=== PATIENT | male | born 1960 | race Caucasian/White ===

== ENCOUNTER 2021-12-26 10:45 | Inpatient (IN) | payer BC ==
[~2021-12-26] VITALS: Ht 178 cm; Wt 76.0 kg
--- NOTE | 2021-12-26 11:07 | ED Respiratory ---
General Chief Complaint: Respiratory Problems Stated Complaint: SOA Nursing Triage Note: PT AMBULATORY TO TRIAGE, REPORTS TESTED POSITIVE FOR COVID ON 12/08. PT C/O CONTINUED SOB AND MID-STERNAL CP, DESCRIBES PRESSURE SENSATION. PT WENT TO CLINIC THIS AM, FOUND OXYGEN LEVE TO BE 85%, PT INSTRUCTED TO COME TO ER FOR FURTHER EVAL. UPON ARRIVAL TO ER, PT O2 SAT 80% ON RA, PLACE ON O2 VIA NC AT 4 L, 02 INCREASED TO 94%. PT ARRIVES WITH EKG FROM CLINIC. (JEFERSON CHUA MED STUDENT) History of Present Illness Date Seen by Provider: Dec 26, 2021 Time Seen by Provider: 10:53 Initial Comments Mr. Burns is a 61 yo male with PMH of 2 PPD smoker and DMII. He presents to ER today from [facility] clinic for hypoxia. He Was diagnosed with Covid about 3 weeks ago and has not been able to recover since. He has been having ongoing substernal discomfort and shortness of breath that is worse with exertion. It has not improved at all since he has gotten covid. He completed a 4 day course o f steroids 5 days ago which he states did not help at all. In the clinic he had a saturation of 85%. He was also tachycardic in the 100-110 range. His O2 is 93% in the ER on 4L. He does not complain of any other symptoms at this time. He was not vaccinated. (JEFERSON CHAU MED STUDENT) Timing/Duration: getting worse, other Severity: moderate (3 weeks) Prior Episodes/Possible Cause: no prior episodes Associated Symptoms: cough; No fever/chills, No muscle aches, No nasal congestion; shortness of breath; No wheezing (MILTON HOLT MD) Allergies and Home Medications Allergies Coded Allergies: NKANo Known Allergies (Verified Allergy, Unknown, 03/08/06) Patient Home Medication List Home Medication List Reviewed: Yes (MILTON HOLT MD) Review of Systems Review of Systems Constitutional: No chills, No fever EENTM: No hearing loss, No vision loss Respiratory: cough; No hemoptysis; short of breath Cardiovascular: chest pain; No edema, No palpitations Gastrointestinal: No abdominal pain, No constipation, No diarrhea, No nausea, No vomiting Genitourinary: No dysuria, No hematuria Musculoskeletal: No joint pain, No joint swelling Skin: No pruritus, No rash Psychiatric/Neurological: Denies Headache, Denies Numbness (JEFERSON CHUA) Constitutional: No chills, No fever EENTM: No nose congestion, No throat pain Respiratory: cough (MILTON HOLT MD) All Other Systems Reviewed Negative Unless Noted: Yes (MILTON HOLT MD) Past Qpdqyio-Itpfey-Jkngti Hx Patient Social History Tobacco Use?: Yes Tobacco type used: Cigarettes Smoking Status: Current Someday Smoker Use of E-Cig and/or Vaping dev: No Substance use?: Yes Substance type: Marijuana Alcohol Use?: No Pt feels they are or have been: No (JEFERSON CHUA) Tobacco Use?: Yes Tobacco type used: Cigarettes Smoking Status: Former Smoker (Quit 3 weeks ago but previously 2 packs/day) Smokeless Tobacco Frequency: Heavy User (MILTON HOLT MD) Immunizations Up To Date First/Initial COVID19 Vaccinat: NO Second COVID19 Vaccination Lg: NO (JEFERSON CHUA) Past Medical History Reproductive Disorders: No (JEFERSON CHUA) Family Medical History Reviewed Nursing Family Hx (MILTON HOLT MD) No Pertinent Family Hx (MILTON HOLT MD) Physical Exam Vital Signs - First Documented 12/26/21 12/26/21 10:55 11:00 Temp 36.4 Pulse 103 Resp 20 B/P (MAP) 131/105 (114) Pulse Ox 80 O2 Delivery Nasal Cannula O2 Flow Rate 4.00 FiO2 94 (MILTON HOLT MD) Capillary Refill : (JEFERSON CHUA STUDENT) Height: '" Weight: lbs. oz. kg; 23.00 BMI Method: General Appearance: WD/WN, no apparent distress Eyes: Bilateral Eye PERRL, Bilateral Eye EOMI HEENT: PERRL/EOMI, other (dry mucus membranes) Respiratory: chest non-tender, no respiratory distress, crackles (in L lower lobe) Cardiovascular: regular rate, rhythm (Tachycardic initially), no edema, no murmur Gastrointestinal: normal bowel sounds, non tender, soft Extremities: no pedal edema, no calf tenderness, normal capillary refill Neurologic/Psychiatric: alert, normal mood/affect, oriented x 3 Skin: normal color, warm/dry (TOMAJEFERSON MED STUDENT) HEENT: pharynx normal, other (dry mucus membranes) Respiratory: crackles (in L lower lobe) Cardiovascular: regular rate, rhythm (Tachycardic initially), no murmur Gastrointestinal: non tender, soft Extremities: non-tender, no pedal edema, no calf tenderness Neurologic/Psychiatric: alert, oriented x 3 Skin: normal color, warm/dry (MILTON HOLT MD) Progress/Results/Core Measures Suspected Sepsis SIRS Temperature: Pulse: 103 Respiratory Rate: 20 Laboratory Tests 12/26/21 10:59: White Blood Count 12.8H Blood Pressure 131 /105 Mean: 114 Laboratory Tests 12/26/21 10:59: Creatinine 0.97, Platelet Count 219, Total Bilirubin 1.0 (TOMAJEFERSON MED STUDENT) Results/Orders Lab Results Laboratory Tests Test 12/26/21 10:59 Range/Units White Blood Count 12.8 H 4.3-11.0 10^3/uL Red Blood Count 5.19 4.30-5.52 10^6/uL Hemoglobin 15.4 13.3-17.7 g/dL Hematocrit 45 40-54 % Mean Corpuscular Volume 86 80-99 fL Mean Corpuscular Hemoglobin 30 25-34 pg Mean Corpuscular Hemoglobin Concent 35 32-36 g/dL Red Cell Distribution Width 12.6 10.0-14.5 % Platelet Count 219 130-400 10^3/uL Mean Platelet Volume 9.4 9.0-12.2 fL Immature Granulocyte % (Auto) 1 % Neutrophils (%) (Auto) 80 H 42-75 % Lymphocytes (%) (Auto) 12 12-44 % Monocytes (%) (Auto) 6 0-12 % Eosinophils (%) (Auto) 1 0-10 % Basophils (%) (Auto) 0 0-10 % Neutrophils # (Auto) 10.3 H 1.8-7.8 10^3/uL Lymphocytes # (Auto) 1.6 1.0-4.0 10^3/uL Monocytes # (Auto) 0.8 0.0-1.0 10^3/uL Eosinophils # (Auto) 0.1 0.0-0.3 10^3/uL Basophils # (Auto) 0.0 0.0-0.1 10^3/uL Immature Granulocyte # (Auto) 0.1 0.0-0.1 10^3/uL Sodium Level 141 135-145 MMOL/L Potassium Level 4.0 3.6-5.0 MMOL/L Chloride Level 104 98-107 MMOL/L Carbon Dioxide Level 19 L 21-32 MMOL/L Anion Gap 18 H 5-14 MMOL/L Blood Urea Nitrogen 15 7-18 MG/DL Creatinine 0.97 0.60-1.30 MG/DL Estimat Glomerular Filtration Rate 89 BUN/Creatinine Ratio 15 Glucose Level 188 H 70-105 MG/DL Calcium Level 10.2 H 8.5-10.1 MG/DL Corrected Calcium 10.3 H 8.5-10.1 MG/DL Total Bilirubin 1.0 0.1-1.0 MG/DL Aspartate Amino Transf (AST/SGOT) 15 5-34 U/L Alanine Aminotransferase (ALT/SGPT) 7 0-55 U/L Alkaline Phosphatase 77 40-136 U/L C-Reactive Protein High Sensitivity 10.70 H 0.00-0.50 MG/DL Total Protein 7.9 6.4-8.2 GM/DL Albumin 3.9 3.2-4.5 GM/DL Procalcitonin 0.08 <0.10 NG/ML (MILTON HOLT MD) My Orders Orders - MILTON HOLT MD Cbc With Automated Diff (12/26/21 11:05) Comprehensive Metabolic Panel (12/26/21 11:05) Hs C Reactive Protein (12/26/21 11:05) Procalcitonin (Pct) (12/26/21 11:05) Ed Iv/Invasive Line Start (12/26/21 11:05) Ns Iv 1000 Ml (Sodium Chloride 0.9%) (12/26/21 11:15) Chest 1 View, Ap/Pa Only (12/26/21 11:05) Albuterol/Ipra Inhalation Soln (Duoneb I (12/26/21 11:15) Svn Small Volume Nebulizer (12/26/21 11:05) Albuterol Pre-Mix Nebs (Rt) (Proventil (12/26/21 11:36) Svn Small Volume Nebulizer (12/26/21 11:36) Ct Angio Chest W (12/26/21 11:39) Iohexol Injection (Omnipaque 350 Mg/Ml 1 (12/26/21 12:00) Received Contrast (Hold Metformin- Contr (12/26/21 12:00) Ns (Ivpb) (Sodium Chloride 0.9% Ivpb Bag (12/26/21 12:00) Sodium Chloride Flush (Catheter Flush Sy (12/26/21 12:00) Methylprednisolone Sod Succ (Solu-Medrol (12/26/21 12:47) Albuterol Pre-Mix Nebs (Rt) (Proventil (12/26/21 12:47) Ipratropium 0.02% Neb Solution (Atrovent (12/26/21 13:00) Svn Small Volume Nebulizer (12/26/21 12:47) Svn Small Volume Nebulizer (12/26/21 12:47) Ed Admission (Communication) (12/26/21 12:50) (MILTON HOLT MD) Medications Given in ED Current Medications Medications Dose Ordered Sig/Chanel Route Start Time Stop Time Status Last Admin Dose Admin Albuterol/ Ipratropium 3 ml ONCE ONCE INH 12/26/21 11:15 12/26/21 11:16 DC 12/26/21 11:22 3 ML Iohexol 100 ml ONCE ONCE IV 12/26/21 12:00 12/26/21 12:01 DC 12/26/21 12:07 66 ML Sodium Chloride 10 ml NEEDED PRN IV 12/26/21 12:00 12/26/21 12:07 10 ML Sodium Chloride 100 ml ONCE ONCE IV 12/26/21 12:00 12/26/21 12:01 DC 12/26/21 12:07 80 ML Sodium Chloride 1,000 ml @ 0 mls/hr Q0M ONCE IV 12/26/21 11:15 12/26/21 11:16 DC 12/26/21 11:12 0 MLS/HR (MILTON HOLT MD) Vital Signs/I&O 12/26/21 12/26/21 12/26/21 12/26/21 10:55 10:55 11:00 11:13 Temp 36.4 Pulse 103 103 Resp 20 20 B/P (MAP) 131/105 (114) 116/87 Pulse Ox 80 92 O2 Delivery Nasal Cannula Nasal Cannula Room Air Nasal Cannula O2 Flow Rate 4.00 4.00 4.00 FiO2 94 12/26/21 12/26/21 12/26/21 12/26/21 11:23 11:39 11:44 11:48 Pulse 92 Resp 18 B/P (MAP) 131/69 Pulse Ox 93 92 94 95 O2 Delivery Nasal Cannula Nasal Cannula Nasal Cannula Nasal Cannula O2 Flow Rate 4.00 4.00 4.00 4.00 12/26/21 12/26/21 11:50 12:24 Pulse 112 Resp 18 B/P (MAP) 124/55 Pulse Ox 95 93 O2 Delivery Nasal Cannula Nasal Cannula O2 Flow Rate 4.00 4.00 (MILTON HOLT MD) Vital Signs/I&O Capillary Refill : (JEFERSON CHUA MED STUDENT) Blood Pressure Mean: 114 Progress Note : Time: 11:33 Progress Note Saw and examined patient. Concern for PE so will check kidney function and basic labs and get CT scan. Nebulizer treatment as well as steroids to help breathing. Will give up to 4. O2 as needed to maintain saturation, may have to be discharged with some. Could also be COPD exacerbation due to smoking history. Got CXR as well, which showed post covid findings. Will also check CRP and procalcitonin. Will give some fluids as well since he seems a bit dry. (JEFERSON CHUA MED STUDENT) Progress Note : Progress Note I have seen and evaluated the patient and agree with above except as indicated. I have directed the plan of care. Patient is here after having increasing shortness of breath. He tried to go to work this morning and was noted to be pale. He went to [facility] urgent care and was found to be hypoxic at 80% with any activity. He is not normally on O2. He did have Covid infection from December 08 that he is recovered from. Since he has had persistent shortness of air. He has been on a steroid pack that did not help apparently last week. Denies fever chills. Denies nausea or vomiting. Otherwise has recovered from Covid. Previous smoker of 2 packs/day since 1978. Quit 3 weeks ago when he got the infection. He is not vaccinated. Evaluation as above. Plan: We will check labs and chest x-ray with anticipation of CT scan of the chest to rule out pulmonary emboli. Normal saline 1 L bolus ordered. DuoNeb ordered. We subsequently did 3 more albuterol treatments as he did have some improvement. Monitor patient. 1248: We have initiated continuous 1 hour along nebulizer treatment with 12.5 mg of albuterol and 1 Atrovent. Solu-Medrol 125 mg IV ordered. Patient to be admitted. No pulmonary emboli but significant lung disease with acute on chronic and COPD exacerbation with hypoxia. Still requiring O2 4 L to keep O2 sats at 92 -94%. Does have of right perihilar mass that is concerning for possible neoplasm. This was discussed with patient. This will require further work-up as patient is able. We will focus on the COPD currently. Case was discussed with Dr. Eisenberg who accepts patient for admission, inpatient status. She will see patient in the emergency department. (MILTON HOLT MD) Diagnostic Imaging Diagonstic Imaging: CT Plain Films/CT/US/NM/MRI: chest [facility] [place] [place] NAME: [facility] REC#: [id number] PT STATUS: REG ER : 1960 PHYSICIAN: MILTON HOLT MD ADMIT DATE: 12/26/21/ER Signed Date of Exam:12/26/21 CHEST 1 VIEW, AP/PA ONLY INDICATION: Shortness of air, post COVID. FINDINGS: There are five-lobe largely peripheral interstitial infiltrates and coarse interstitial lung markings. No airspace consolidation. No overt failure pattern. No effusion or pneumothorax. IMPRESSION: Bilateral largely peripheral interstitial opacities, while nonspecific likely reflect the sequelae of known COVID. Dictated by: Dictated on workstation # [id number] Dict: 12/26/21 1126 Trans: 12/26/21 1151 [id number] Interpreted by: RAMONA HUMPHREYS Electronically signed by: RAMONA HUMPHREYS 12/26/21 1151 Diagonstic Imaging: Xray, CT Plain Films/CT/US/NM/MRI: chest Comments [facility] [place] NAME: KATYABE [facility] [employer] REC#: [id number] PT STATUS: REG ER : 1960 PHYSICIAN: MILTON HOLT MD ADMIT DATE: 12/26/21/ER Signed Date of Exam:12/26/21 CT ANGIO CHEST W PROCEDURE: CT angiography of the chest with contrast. TECHNIQUE: Multiple contiguous axial images were obtained through the chest after uneventful bolus administration of intravenous contrast. 3D reconstructed CTA MIP acquisitions were also performed. Auto Exposure Controls were utilized during the CT exam to meet ALARA standards for radiation dose reduction. INDICATION: Shortness of breath. Elevated D-dimer. COMPARISON: Chest radiograph performed earlier this same date. FINDINGS: This helical CT pulmonary angiogram is suboptimal. No large central pulmonary emboli are visualized. The heart size is normal. There is no pericardial effusion. Lymphadenopathy is seen in the chest with the largest lymph node in the right hilar region measuring 3.3 x 2.7 cm. Centrilobular and paraseptal emphysema is seen throughout the lungs. Honeycombing is noted throughout the lungs. There is associated traction bronchiectasis. No discrete pulmonary mass is identified. No central endobronchial obstructing lesions. No pleural effusion or pneumothorax. Osseous structures appear normal. Limited views of the upper abdomen are unremarkable. IMPRESSION: 1. Suboptimal CT pulmonary angiogram due to contrast timing. No large central pulmonary emboli seen. 2. Findings consistent with UIP pattern with honeycombing and bronchiectasis throughout the lungs. Recommend correlation with patient history and PFTs. 3. Pathologically enlarged lymph nodes in the mediastinum and hilum with the largest in the right hilar region. Findings are concerning for malignancy. Consider PET/CT to further evaluate. Biopsy of the largest lymph node in the right hilar region could also be achieved with bronchoscopy guided biopsy. 4. Paraseptal and centrilobular emphysema throughout the lungs, greatest in the apices. Dictated by: Dictated on workstation # [id number] Dict: 12/26/21 1213 Trans: 12/26/21 1231 [id number] Interpreted by: HANNAH HIRSCH DO Electronically signed by: HANNAH HIRSCH DO 12/26/21 1231 (MILTON HOLT MD) Departure Communication (Admissions) Time/Spoke to Admitting Phy: 12:48 (MILTON HOLT MD) Impression Primary Impression: COPD with exacerbation Additional Impressions: Hypoxia Mass of right lung Post-COVID syndrome Disposition: 09 ADMITTED INPATIENT Condition: Stable Admissions Decision to Admit Reason: Admit from ER (General) Decision to Admit/Date: Dec 26, 2021 Time/Decision to Admit Time: 12:48 (MILTON HOLT MD) Departure-Patient Inst. Referrals: RUBINA BENSON MD (PCP/Family) Primary Care Physician JEFERSON CHUA MED STUDENT Dec 26, 2021 11:07 MILTON HOLT MD Dec 26, 2021 12:58
[2021-12-26] MEDS ORDERED: NS IV 1000 ML 1,000 ML IV ONE (11:15)
[2021-12-26] MEDS ORDERED: RT-ALBUTEROL/IPRATROPIUM 3 ML (DUONEB) VIAL INH ONE (11:15)
[2021-12-26 11:17] LABS: ALBUMIN 3.9 GM/DL (3.2-4.5)
[2021-12-26 11:18] LABS: BASOPHILS % (AUTO) 0 % (0-10); EOSINOPHILS # (AUTO) 0.1 10^3/uL (0.0-0.3); EOSINOPHILS % (AUTO) 1 % (0-10); HEMATOCRIT 45 % (40-54); HEMOGLOBIN 15.4 g/dL (13.3-17.7); LYMPHOCYTES # (AUTO) 1.6 10^3/uL (1.0-4.0); LYMPHOCYTES % (AUTO) 12 % (12-44); MEAN CORPUSCULAR HEMOGLOBIN 30 pg (25-34); MEAN CORPUSCULAR HGB CONC 35 g/dL (32-36); MEAN CORPUSCULAR VOLUME 86 fL (80-99); MEAN PLATELET VOLUME 9.4 fL (9.0-12.2); MONOCYTES # (AUTO) 0.8 10^3/uL (0.0-1.0); MONOCYTES % (AUTO) 6 % (0-12); NEUTROPHILS # (AUTO) 10.3 10^3/uL (1.8-7.8); NEUTROPHILS % (AUTO) 80 % (42-75); PLATELET COUNT 219 10^3/uL (130-400); WHITE BLOOD COUNT 12.8 10^3/uL (4.3-11.0)
[2021-12-26 11:19] LABS: CALCIUM 10.2 MG/DL (8.5-10.1)
[2021-12-26 11:20] LABS: TOTAL PROTEIN 7.9 GM/DL (6.4-8.2)
[2021-12-26 11:24] LABS: CREATININE SERUM 0.97 MG/DL (0.60-1.30)
--- NOTE | 2021-12-26 11:30 | Diagnostic Imaging Report ---
INDICATION: Shortness of air, post COVID. FINDINGS: There are five-lobe largely peripheral interstitial infiltrates and coarse interstitial lung markings. No airspace consolidation. No overt failure pattern. No effusion or pneumothorax. IMPRESSION: Bilateral largely peripheral interstitial opacities, while nonspecific likely reflect the sequelae of known COVID. Dictated by: Dictated on workstation # [id number]
[2021-12-26] MEDS ORDERED: fentaNYL INJ 100 MCG/2 ML AMP IVP STA (11:33)
[2021-12-26] MEDS ORDERED: RT-ALBUTEROL SULF 2.5 MG/3 ML PRE-MIX VIAL INH STA ×2 (11:36→12:47)
[2021-12-26] MEDS ORDERED: HYDROcodone/APAP 5 MG/325 MG (LORTAB) TAB PO ONE (11:45)
[2021-12-26] MEDS ORDERED: IOHEXOL 350 MG/ML 100 ML (OMNIPAQUE 350) VIAL IV ONE (12:00)
[2021-12-26] MEDS ORDERED: HOLD METFORMIN - RECEIVED CONTRAST 20 ML VIAL IV SCH (12:00)
[2021-12-26] MEDS ORDERED: NS 100 ML (IVPB) BAG IV ONE (12:00)
[2021-12-26] MEDS ORDERED: CATHETER FLUSH 10 ML SYR IV PRN (12:00)
--- NOTE | 2021-12-26 12:26 | Diagnostic Imaging Report ---
PROCEDURE: CT angiography of the chest with contrast. TECHNIQUE: Multiple contiguous axial images were obtained through the chest after uneventful bolus administration of intravenous contrast. 3D reconstructed CTA MIP acquisitions were also performed. Auto Exposure Controls were utilized during the CT exam to meet ALARA standards for radiation dose reduction. INDICATION: Shortness of breath. Elevated D-dimer. COMPARISON: Chest radiograph performed earlier this same date. FINDINGS: This helical CT pulmonary angiogram is suboptimal. No large central pulmonary emboli are visualized. The heart size is normal. There is no pericardial effusion. Lymphadenopathy is seen in the chest with the largest lymph node in the right hilar region measuring 3.3 x 2.7 cm. Centrilobular and paraseptal emphysema is seen throughout the lungs. Honeycombing is noted throughout the lungs. There is associated traction bronchiectasis. No discrete pulmonary mass is identified. No central endobronchial obstructing lesions. No pleural effusion or pneumothorax. Osseous structures appear normal. Limited views of the upper abdomen are unremarkable. IMPRESSION: 1. Suboptimal CT pulmonary angiogram due to contrast timing. No large central pulmonary emboli seen. 2. Findings consistent with UIP pattern with honeycombing and bronchiectasis throughout the lungs. Recommend correlation with patient history and PFTs. 3. Pathologically enlarged lymph nodes in the mediastinum and hilum with the largest in the right hilar region. Findings are concerning for malignancy. Consider PET/CT to further evaluate. Biopsy of the largest lymph node in the right hilar region could also be achieved with bronchoscopy guided biopsy. 4. Paraseptal and centrilobular emphysema throughout the lungs, greatest in the apices. Dictated by: Dictated on workstation # [id number]
[2021-12-26] MEDS ORDERED: methylPREDNISolone 125 MG (Solu-MEDROL) VIAL IV STA (12:47)
[2021-12-26] MEDS ORDERED: RT-IPRATROPIUM (ATROVENT) 0.5MG/2.5ML AMP IH ONE (13:00)
--- NOTE | 2021-12-26 13:40 | History & Physical ---
HPI History of Present Illness: 61 yo male came to ER because of worsening shortness of breath, fatigue, chills and diaphoresis. Symptoms initially started Dec 08, tested positive for SARS-CoV-2 on Dec 09, didn't see anybody until Dec 17 hoping he would get better on his own, at that point he was treated with prednisone for 5 days, but hasn't really improved. Today his fingers were turning blue while at work, and at clinic he was found to have SpO2 85% on room air. He has lost 10-15 lbs in the last few weeks from poor taste and not feeling well. He admits some chest pain today before arrival that improved after breathing treatments. He has smoked 2 ppd since 1978, hasn't smoked in the last 3 weeks. No history of COPD diagnosis, inhaler use or supplemental oxygen use. Date seen by provider: Dec 26, 2021 Time Seen by Provider: 13:25 Attending Physician Angela Eisenberg MD [facility] Consult Date of Admission Dec 26, 2021 at 12:53 Home Medications Home Medications Reviewed patient Home Medication Reconciliation performed by pharmacy medication reconciliations electro mechanical solar technician and/or nursing. Patients Allergies have been reviewed. Allergies Coded Allergies: NKANo Known Allergies (Verified Allergy, Unknown, 03/08/06) [id number]-[id number]-Anmlyw Hx Patient Social History Smoking Status: Former Smoker (Quit 3 weeks ago but previously 2 packs/day) Former smoker/When Quit: Dec 08, 2021 Alcohol Use?: Yes (12 pack on the weekend) Substance type: Marijuana Tobacco type used: Cigarettes Past Medical History PMHx: Diabetes SurgHx: Cholecystectomy Family Medical History Significant Family History: Cancer (father lung, bone, brain; paternal uncle bone cancer, paternal uncles on brain cancer) Review of Systems ([facility]) Constitutional: chills, diaphoresis, weight loss Respiratory: cough, short of breath Cardiovascular: chest pain Gastrointestinal: No diarrhea, No vomiting Reviewed Test Results Reviewed Test Results Lab Laboratory Tests Test 12/26/21 10:59 Range/Units White Blood Count 12.8 H 4.3-11.0 10^3/uL Red Blood Count 5.19 4.30-5.52 10^6/uL Hemoglobin 15.4 13.3-17.7 g/dL Hematocrit 45 40-54 % Mean Corpuscular Volume 86 80-99 fL Mean Corpuscular Hemoglobin 30 25-34 pg Mean Corpuscular Hemoglobin Concent 35 32-36 g/dL Red Cell Distribution Width 12.6 10.0-14.5 % Platelet Count 219 130-400 10^3/uL Mean Platelet Volume 9.4 9.0-12.2 fL Immature Granulocyte % (Auto) 1 % Neutrophils (%) (Auto) 80 H 42-75 % Lymphocytes (%) (Auto) 12 12-44 % Monocytes (%) (Auto) 6 0-12 % Eosinophils (%) (Auto) 1 0-10 % Basophils (%) (Auto) 0 0-10 % Neutrophils # (Auto) 10.3 H 1.8-7.8 10^3/uL Lymphocytes # (Auto) 1.6 1.0-4.0 10^3/uL Monocytes # (Auto) 0.8 0.0-1.0 10^3/uL Eosinophils # (Auto) 0.1 0.0-0.3 10^3/uL Basophils # (Auto) 0.0 0.0-0.1 10^3/uL Immature Granulocyte # (Auto) 0.1 0.0-0.1 10^3/uL Sodium Level 141 135-145 MMOL/L Potassium Level 4.0 3.6-5.0 MMOL/L Chloride Level 104 98-107 MMOL/L Carbon Dioxide Level 19 L 21-32 MMOL/L Anion Gap 18 H 5-14 MMOL/L Blood Urea Nitrogen 15 7-18 MG/DL Creatinine 0.97 0.60-1.30 MG/DL Estimat Glomerular Filtration Rate 89 BUN/Creatinine Ratio 15 Glucose Level 188 H 70-105 MG/DL Calcium Level 10.2 H 8.5-10.1 MG/DL Corrected Calcium 10.3 H 8.5-10.1 MG/DL Total Bilirubin 1.0 0.1-1.0 MG/DL Aspartate Amino Transf (AST/SGOT) 15 5-34 U/L Alanine Aminotransferase (ALT/SGPT) 7 0-55 U/L Alkaline Phosphatase 77 40-136 U/L C-Reactive Protein High Sensitivity 10.70 H 0.00-0.50 MG/DL Total Protein 7.9 6.4-8.2 GM/DL Albumin 3.9 3.2-4.5 GM/DL Procalcitonin 0.08 <0.10 NG/ML Radiology CTA chest 12/26: IMPRESSION: 1. Suboptimal CT pulmonary angiogram due to contrast timing. Nolarge central pulmonary emboli seen. 2. Findings consistent with UIP pattern with honeycombing and bronchiectasis throughout the lungs. Recommend correlation with patient history and PFTs. 3. Pathologically enlarged lymph nodes in the mediastinum and hilum with the largest in the right hilar region. Findings areconcerning for malignancy. Consider PET/CT to further evaluate. Biopsy of the largest lymph node in the right hilar region could also be achieved with bronchoscopy guided biopsy. 4. Paraseptal and centrilobular emphysema throughout the lungs, greatest in the apices. Physical Exam-([facility]) Physical Exam Vital Signs VS - Last 72 Hours, by Label 12/26/21 12/26/21 12/26/21 12/26/21 10:55 10:55 11:00 11:13 Temp 36.4 Pulse 103 103 Resp 20 20 B/P (MAP) 131/105 (114) 116/87 Pulse Ox 80 92 O2 Delivery Nasal Cannula Nasal Cannula Room Air Nasal Cannula O2 Flow Rate 4.00 4.00 4.00 FiO2 94 12/26/21 12/26/21 12/26/21 12/26/21 11:23 11:39 11:44 11:48 Pulse 92 Resp 18 B/P (MAP) 131/69 Pulse Ox 93 92 94 95 O2 Delivery Nasal Cannula Nasal Cannula Nasal Cannula Nasal Cannula O2 Flow Rate 4.00 4.00 4.00 4.00 12/26/21 12/26/21 12/26/21 12/26/21 11:50 12:24 12:59 13:06 Pulse 112 106 101 Resp 18 18 18 B/P (MAP) 124/55 115/66 115/70 Pulse Ox 95 93 93 93 O2 Delivery Nasal Cannula Nasal Cannula Nasal Cannula Nasal Cannula O2 Flow Rate 4.00 4.00 4.00 4.00 12/26/21 12/26/21 12/26/21 12/26/21 13:37 14:07 14:12 15:41 Temp 37.2 35.9 36.7 Pulse 107 107 93 Resp 18 22 B/P (MAP) 130/78 130/78 (95) 118/76 (90) Pulse Ox 93 93 O2 Delivery Nasal Cannula Nasal Cannula Nasal Cannula Nasal Cannula O2 Flow Rate 4.00 4.00 4.00 4.00 12/26/21 12/26/21 12/26/21 12/26/21 15:46 16:25 18:39 19:35 Temp 36.4 36.6 Pulse 103 90 Resp 22 B/P (MAP) 130/75 (93) Pulse Ox 80 95 91 O2 Delivery Nasal Cannula Nasal Cannula Nasal Cannula O2 Flow Rate 4.00 4.00 4.00 FiO2 21 Capillary Refill : General Appearance: WD/WN, no apparent distress Respiratory: no respiratory distress, rales (bilaterally lower halves) Cardiovascular: regular rate, rhythm, no murmur Gastrointestinal: normal bowel sounds, non tender, soft Extremities: no pedal edema Neurologic/Psychiatric: alert, normal mood/affect Skin: normal color, warm/dry Assessment/Plan Assessment/Plan Admission Status: Inpatient Order (span 2 midnights) Reason for Inpatient Admission: New onset respiratory failure (1) Acute respiratory failure Status: Acute Assessment & Plan: Suspect secondary to COPD exacerbation, but possibly related to underlying fibrosis and recent COVID infection. CTA negative for PE. Qualifiers: Qualified Codes: J96.01 - Acute respiratory failure with hypoxia (2) COPD with exacerbation Status: Acute Assessment & Plan: Suspect COPD exacerbation, but differential includes idiopathic pulmonary fibrosis with exacerbation given CT findings. Procal normal, afebrile, minimal leukocytosis, lower suspicion for bacterial infection. Solumedrol, duonebs. (3) Diabetes mellitus, type 2 Status: Chronic Assessment & Plan: Diabetic diet, sliding scale insulin Qualifiers: (4) Post-COVID syndrome Status: Acute Assessment & Plan: Dx with COVID early in Fe, suspect significant contribution to current respiratory failure, but CT also concerning for fibrosis and emphysema which were likely preexisting. (5) Lung fibrosis Status: Acute Assessment & Plan: Will need further work-up after acute episode for possible idiopathic pulmonary fibrosis versus other cause. (6) Mediastinal lymphadenopathy Status: Acute Assessment & Plan: Possibly pathologic, will treat acute episode and likely set up for biopsy/follow up outpatient. (7) Hilar lymphadenopathy Status: Acute Assessment & Plan: Possibly pathologic, will treat acute episode and likely set up for biopsy/follow up outpatient. (8) DVT prophylaxis Status: Acute Assessment & Plan: Enoxaparin ANGELA EISENBERG MD Dec 26, 2021 13:39
[2021-12-26] MEDS ORDERED: METHYLPREDNISOLONE 1000 MG IVP SCH (13:45)
[2021-12-26 14:07] VITALS: BP 130/78
[2021-12-26] MEDS: ACETAMINOPHEN 500 MG TAB (TYLENOL) PO SCH ×2 (15:06→21:42)
[2021-12-26 15:41] VITALS: BP 118/76
[2021-12-26 15:46] VITALS: BP 131/105
[2021-12-26] MEDS ORDERED: RT-ALBUTEROL/IPRATROPIUM 3 ML (DUONEB) VIAL INH PRN (16:15)
[2021-12-26] MEDS: methylPREDNISolone 125 MG (Solu-MEDROL) VIAL IV SCH ×2 (17:55→23:16)
[2021-12-26] MEDS: RT-ALBUTEROL/IPRATROPIUM 3 ML (DUONEB) VIAL INH SCH ×2 (18:39→21:57)
[2021-12-26 19:35] VITALS: BP 130/75
[2021-12-26] MEDS: ENOXAPARIN 40 MG/0.4 ML (LOVENOX) SYR SQ SCH (23:16)
[2021-12-26 23:59] VITALS: BP 122/71
[2021-12-27] MEDS: RT-ALBUTEROL/IPRATROPIUM 3 ML (DUONEB) VIAL INH SCH ×6 (02:20→21:27)
[2021-12-27 03:53] VITALS: BP 124/69
[2021-12-27] MEDS: methylPREDNISolone 125 MG (Solu-MEDROL) VIAL IV SCH ×2 (05:33→13:03)
[2021-12-27] MEDS: ACETAMINOPHEN 500 MG TAB (TYLENOL) PO SCH (05:34)
[2021-12-27 06:04] LABS: HEMATOCRIT 36 % (40-54); HEMOGLOBIN 12.4 g/dL (13.3-17.7); MEAN CORPUSCULAR HEMOGLOBIN 30 pg (25-34); MEAN CORPUSCULAR HGB CONC 34 g/dL (32-36); MEAN CORPUSCULAR VOLUME 86 fL (80-99); MEAN PLATELET VOLUME 9.8 fL (9.0-12.2); PLATELET COUNT 167 10^3/uL (130-400); WHITE BLOOD COUNT 6.4 10^3/uL (4.3-11.0)
[2021-12-27 06:14] LABS: POTASSIUM 3.8 MMOL/L (3.6-5.0)
[2021-12-27 06:15] LABS: CALCIUM 9.8 MG/DL (8.5-10.1)
[2021-12-27 06:19] LABS: CREATININE SERUM 0.81 MG/DL (0.60-1.30)
[2021-12-27] MEDS ORDERED: ACETAMINOPHEN 500 MG TAB (TYLENOL) PO PRN (07:30)
[2021-12-27 08:02] VITALS: BP 137/72
[2021-12-27] MEDS ORDERED: LISI5TAB20 PO (10:01)
[2021-12-27] MEDS ORDERED: CHOL-34 PO (10:01)
[2021-12-27] MEDS ORDERED: ASPI-1238 PO (10:01)
[2021-12-27] MEDS ORDERED: METF-399 PO ×2 (10:01)
[2021-12-27] MEDS ORDERED: ALLO300T2 PO (10:01)
[2021-12-27] MEDS ORDERED: CYAN500T8 PO (10:01)
[2021-12-27] MEDS ORDERED: GLIP5TAB13 PO (10:01)
[2021-12-27] MEDS ORDERED: SIMV20TA26 PO (10:01)
--- NOTE | 2021-12-27 10:56 | Progress Note ---
RUBINA HERNANDEZ III MED STUDENT 12/27/21 1056: Subjective Subjective/Events-last exam Denies any acute overnight events. Notes great improvement in his breathing status since admission. Denies any chest pain, abdominal pain, fever, chills, dysuria. Has minimal SOB w/ exertion however can recover easily. Does note that he was able to eat food last night w/o any problem and it tasted much better than he was anticipating. Review of Systems General: No Chills, No Fatigue, No Malaise; Appetite HEENT: No Head Aches, No Visual Changes, No Dysphasia Pulmonary: No Dyspnea; Cough (minor, non-productive. had prior to arrival ); No Pleuritic Chest Pain Cardiovascular: No: Chest Pain, Palpitations, Orthopnea Gastrointestinal: No: Nausea, Vomiting, Abdominal Pain, Diarrhea, Constipation Genitourinary: No Dysuria, No Frequency, No Incontinence, No Hematuria, No Retention, No Other Musculoskeletal: No: other, neck pain, shoulder pain, arm pain, back pain, hand pain, leg pain, foot pain Neurological: No: Weakness, Numbness, Incoordination, Change in speech, Confusion, Seizures, Other Objective Exam Last Set of Vital Signs Vital Signs Date Time Temp Pulse Resp B/P (MAP) Pulse Ox O2 Delivery O2 Flow Rate FiO2 12/27/21 10:30 92 Nasal Cannula 4.00 12/27/21 08:02 36.9 79 18 137/72 (93) 12/26/21 15:46 21 Capillary Refill : I&O Intake and Output 12/27/21 00:00 Intake Total 410 ml Balance 410 ml Intake Oral 410 ml # Voids 2 # Bowel Movements 1 Daily Weight Change Yes, 14-23 lbs General: Alert, Oriented X3, Cooperative, No Acute Distress HEENT: Atraumatic, PERRLA, EOMI, Mucous Memb Moist/[place] Neck: Supple, No JVD Lungs: Other (no acute respiratory distress, noted bilateral basilar inspiratory crackles that have improved slightly since admission, no obvious wheezes appreciated.) Heart: Regular Rate, Normal S1, Normal S2, No Murmurs Abdomen: Normal Bowel Sounds, Soft, No Tenderness Extremities: No Clubbing, No Cyanosis, No Edema, Normal Pulses Skin: No Significant Lesion Neuro: Normal Speech, Normal Tone Psych/Mental Status: Mental Status NL Results/Procedures Lab Laboratory Tests 12/26/21 10:59: White Blood Count 12.8H, Red Blood Count 5.19, Hemoglobin 15.4, Hematocrit 45, Mean Corpuscular Volume 86, Mean Corpuscular Hemoglobin 30, Mean Corpuscular Hemoglobin Concent 35, Red Cell Distribution Width 12.6, Platelet Count 219, Mean Platelet Volume 9.4, Immature Granulocyte % (Auto) 1, Neutrophils (%) (Auto) 80H, Lymphocytes (%) (Auto) 12, Monocytes (%) (Auto) 6, Eosinophils (%) (Auto) 1, Basophils (%) (Auto) 0, Neutrophils # (Auto) 10.3H, Lymphocytes # (Auto) 1.6, Monocytes # (Auto) 0.8, Eosinophils # (Auto) 0.1, Basophils # (Auto) 0.0, Immature Granulocyte # (Auto) 0.1, Sodium Level 141, Potassium Level 4.0, Chloride Level 104, Carbon Dioxide Level 19L, Anion Gap 18H, Blood Urea Nitrogen 15, Creatinine 0.97, Estimat Glomerular Filtration Rate 89, BUN/Creatinine Ratio 15, Glucose Level 188H, Calcium Level 10.2H, Corrected Calcium 10.3H, Total Bilirubin 1.0, Aspartate Amino Transf (AST/SGOT) 15, Alanine Aminotransferase (ALT/SGPT) 7, Alkaline Phosphatase 77, C-Reactive Protein High Sensitivity 10.70H, Total Protein 7.9, Albumin 3.9, Procalcitonin 0.08 12/27/21 05:14: White Blood Count 6.4, Red Blood Count 4.21L, Hemoglobin 12.4L, Hematocrit 36L, Mean Corpuscular Volume 86, Mean Corpuscular Hemoglobin 30, Mean Corpuscular Hemoglobin Concent 34, Red Cell Distribution Width 12.5, Platelet Count 167, Mean Platelet Volume 9.8, Sodium Level 137, Potassium Level 3.8, Chloride Level 104, Carbon Dioxide Level 17L, Anion Gap 16H, Blood Urea Nitrogen 18, Creatinine 0.81, Estimat Glomerular Filtration Rate 101, BUN/Creatinine Ratio 22, Glucose Level 404*H, Calcium Level 9.8 12/27/21 10:40: Glucometer 347H Laboratory Tests 12/26/21 10:59 12/27/21 05:14 Radiology CTA chest 12/26: IMPRESSION: 1. Suboptimal CT pulmonary angiogram due to contrast timing. Nolarge central pulmonary emboli seen. 2. Findings consistent with UIP pattern with honeycombing and bronchiectasis throughout the lungs. Recommend correlation with patient history and PFTs. 3. Pathologically enlarged lymph nodes in the mediastinum and hilum with the largest in the right hilar region. Findings areconcerning for malignancy. Consider PET/CT to further evaluate. Biopsy of the largest lymph node in the right hilar region could also be achieved with bronchoscopy guided biopsy. 4. Paraseptal and centrilobular emphysema throughout the lungs, greatest in the apices. Assessment/Plan Assessment/Plan (1) Acute respiratory failure Status: Acute Assessment & Plan: Suspect secondary to COPD exacerbation, but possibly related to underlying fibrosis and recent COVID infection. CTA negative for PE. Qualifiers: Qualified Codes: J96.01 - Acute respiratory failure with hypoxia (2) COPD with exacerbation Status: Acute Assessment & Plan: Suspect COPD exacerbation, but differential includes idiopathic pulmonary fibrosis with exacerbation given CT findings. Procal normal, afebrile, minimal leukocytosis, lower suspicion for bacterial infection. Duonebs. transition from solumedrol 60mg Q6H to prednisone taper (60mg qday x2 days, 50mg x 2 days, 40mg x 2 days) (3) Diabetes mellitus, type 2 Status: Chronic Assessment & Plan: Diabetic diet, sliding scale insulin, determir 10u QHS Qualifiers: (4) Post-COVID syndrome Status: Acute Assessment & Plan: Dx with COVID early in Feb, suspect significant contribution to current respiratory failure, but CT also concerning for fibrosis and emphysema which were likely preexisting. (5) Lung fibrosis Status: Acute Assessment & Plan: Will need further work-up after acute episode for possible idiopathic pulmonary fibrosis versus other cause. (6) Mediastinal lymphadenopathy Status: Acute Assessment & Plan: Possibly pathologic, will treat acute episode and likely set up for biopsy/follow up outpatient. (7) Hilar lymphadenopathy Status: Acute Assessment & Plan: Possibly pathologic, will treat acute episode and likely set up for biopsy/follow up outpatient. (8) DVT prophylaxis Status: Acute Assessment & Plan: Enoxaparin ANGELA AYERS MD 12/27/21 1504: Objective Exam General: Alert, No Acute Distress Lungs: Other (bibasilar rales, no wheezing) Heart: Regular Rate, No Murmurs Abdomen: Normal Bowel Sounds, Soft, No Tenderness Extremities: No Edema Neuro: Normal Speech Psych/Mental Status: Mood NL Supervisory-Addendum Brief Verification & Attestation Participated in pt care: history, MDM, physical Personally performed: exam, history, MDM Care discussed with: Medical Student Procedures: n/a I personally saw and examined patient and repeated history (see my exam for my physical exam findings, I did not repeat the entire exam documented by the student). I directed the plan of care as documented by the medical student. RUBINA HERNANDEZ III MED STUDENT Dec 27, 2021 10:56 ANEGLA AYERS MD Dec 27, 2021 15:04
[2021-12-27] MEDS ORDERED: inSUlin ASPART (NovoLOG) 1 UNIT/0.01 ML (CHARGE PER UNIT) SC SCH (11:00)
[2021-12-27 11:33] VITALS: BP 126/64
[2021-12-27] MEDS: predniSONE 10 MG TAB PO SCH (13:08)
[2021-12-27 15:43] VITALS: BP 120/68
[2021-12-27] MEDS ORDERED: inSUlin ASPART (NovoLOG) 1 UNIT/0.01 ML (CHARGE PER UNIT) ONE (16:11)
[2021-12-27] MEDS: inSUlin ASPART (NovoLOG) 1 UNIT/0.01 ML (CHARGE PER UNIT) SC SCH ×2 (16:12→21:34)
[2021-12-27] MEDS: ENOXAPARIN 40 MG/0.4 ML (LOVENOX) SYR SQ SCH (19:58)
[2021-12-27 20:01] VITALS: BP 135/70
[2021-12-27 23:28] VITALS: BP 118/61
[2021-12-28 00:56] VITALS: BP 137/72
[2021-12-28 03:20] VITALS: BP 121/68
[2021-12-28] MEDS: RT-ALBUTEROL/IPRATROPIUM 3 ML (DUONEB) VIAL INH SCH ×3 (04:08→12:09)
[2021-12-28 05:22] LABS: HEMATOCRIT 37 % (40-54); HEMOGLOBIN 12.5 g/dL (13.3-17.7); MEAN CORPUSCULAR HEMOGLOBIN 29 pg (25-34); MEAN CORPUSCULAR HGB CONC 34 g/dL (32-36); MEAN CORPUSCULAR VOLUME 86 fL (80-99); MEAN PLATELET VOLUME 9.9 fL (9.0-12.2); PLATELET COUNT 222 10^3/uL (130-400); WHITE BLOOD COUNT 14.9 10^3/uL (4.3-11.0)
[2021-12-28 05:46] LABS: POTASSIUM 4.1 MMOL/L (3.6-5.0)
[2021-12-28 05:47] LABS: CALCIUM 9.8 MG/DL (8.5-10.1)
[2021-12-28 05:52] LABS: CREATININE SERUM 0.81 MG/DL (0.60-1.30)
[2021-12-28] MEDS: inSUlin ASPART (NovoLOG) 1 UNIT/0.01 ML (CHARGE PER UNIT) SC SCH ×2 (06:26→10:57)
[2021-12-28 07:31] VITALS: BP 139/73
[2021-12-28] MEDS ORDERED: RT--FLUTICASONE/SALMETEROL 113-14 (AIRDUO RespiCLICK) IH SCH (08:00)
[2021-12-28] MEDS ORDERED: ALLOPURINOL 300 MG (ZYLOPRIM) TAB PO SCH (09:00)
[2021-12-28] MEDS ORDERED: lisINopril 5 MG (PRINIVIL) TABLET PO SCH (09:00)
[2021-12-28] MEDS ORDERED: VITAMIN D3 25 MCG (1,000 UNITS) TABLET PO SCH (09:00)
[2021-12-28] MEDS ORDERED: ASPIRIN E.C. 81 MG (ECOTRIN) TAB PO SCH (09:00)
[2021-12-28] MEDS: predniSONE 10 MG TAB PO SCH (09:04)
[2021-12-28 11:21] VITALS: BP 140/74
--- NOTE | 2021-12-28 11:49 | Progress Note ---
RUBINA HERNANDEZ III MED STUDENT 12/28/21 1149: Subjective Subjective/Events-last exam Pt denies any overnight events. States that his breathing is much improved and does not feel short of breath with the supplemental O2 and breathing treatments. Has been able to eat food w/o problem. Denies cp, fever, nausea, abdominal pain. Notes he is will to d/c w/ home oxygen if it means he can get out of the hospital today Review of Systems General: No Chills, No Night Sweats, No Fatigue, No Malaise HEENT: No Head Aches, No Visual Changes, No Eye Pain, No Ear Pain, No Dysphasia, No Sinus Congestion, No Post Nasal Drip, No Sore Throat, No Other Pulmonary: Dyspnea (minimal w/ exertion, easyily recovers w/ minimal time); No Cough, No Pleuritic Chest Pain Cardiovascular: No: Chest Pain, Palpitations, Orthopnea, Paroxysmal Noc. Dyspnea, Edema, Lt Headedness, Other Gastrointestinal: No: Nausea, Vomiting, Abdominal Pain, Diarrhea, Constipation, Melena, Hematochezia, Other Genitourinary: No Dysuria, No Frequency, No Incontinence, No Hematuria, No Retention, No Other Musculoskeletal: No: other, neck pain, shoulder pain, arm pain, back pain, hand pain, leg pain, foot pain Neurological: No: Weakness, Numbness, Incoordination, Change in speech, Confusion, Seizures, Other Objective Exam Last Set of Vital Signs Vital Signs Date Time Temp Pulse Resp B/P (MAP) Pulse Ox O2 Delivery O2 Flow Rate FiO2 12/28/21 11:21 36.6 86 20 140/74 (96) 90 Room Air 12/28/21 10:24 4.50 12/28/21 00:56 32 Capillary Refill : I&O Intake and Output 12/28/21 00:00 Intake Total 1840 ml Balance 1840 ml Intake Oral 1840 ml # Voids 8 # Bowel Movements 2 General: Alert, Oriented X3, Cooperative, No Acute Distress HEENT: Atraumatic, PERRLA, EOMI, Mucous Memb Moist/[place] Neck: Supple, No JVD Lungs: Other (crackles appreciated in bilateral lung bases, though improved compared to previous days. no obivous wheezes, stridor appreciated on exam. no accessory muscle use.) Heart: Regular Rate, Normal S1, Normal S2, No Murmurs Abdomen: Normal Bowel Sounds, Soft, No Tenderness Extremities: No Clubbing, No Cyanosis, No Edema, Normal Pulses Skin: No Significant Lesion Neuro: Normal Speech, Cranial Nerves 3-12 NL Psych/Mental Status: Mental Status NL, Mood NL Results/Procedures Lab Laboratory Tests 12/27/21 15:33: Glucometer 404*H 12/27/21 20:46: Glucometer 358H 12/28/21 05:12: White Blood Count 14.9H, Red Blood Count 4.27L, Hemoglobin 12.5L, Hematocrit 37L , Mean Corpuscular Volume 86, Mean Corpuscular Hemoglobin 29, Mean Corpuscular Hemoglobin Concent 34, Red Cell Distribution Width 12.5, Platelet Count 222, Mean Platelet Volume 9.9, Sodium Level 138, Potassium Level 4.1, Chloride Level 106, Carbon Dioxide Level 19L, Anion Gap 13, Blood Urea Nitrogen 24H, Creatinine 0.81, Estimat Glomerular Filtration Rate 101, BUN/Creatinine Ratio 30, Glucose Level 236H, Calcium Level 9.8 12/28/21 10:20: Glucometer 140H Laboratory Tests 12/28/21 05:12 Radiology CTA chest 12/26: IMPRESSION: 1. Suboptimal CT pulmonary angiogram due to contrast timing. Nolarge central pulmonary emboli seen. 2. Findings consistent with UIP pattern with honeycombing and bronchiectasis throughout the lungs. Recommend correlation with patient history and PFTs. 3. Pathologically enlarged lymph nodes in the mediastinum and hilum with the largest in the right hilar region. Findings areconcerning for malignancy. Consider PET/CT to further evaluate. Biopsy of the largest lymph node in the right hilar region could also be achieved with bronchoscopy guided biopsy. 4. Paraseptal and centrilobular emphysema throughout the lungs, greatest in the apices. Assessment/Plan Assessment/Plan (1) Acute respiratory failure Status: Resolved Assessment & Plan: Suspect secondary to COPD exacerbation, but possibly related to underlying fibrosis and recent COVID infection. CTA negative for PE. Respi ratory status much improved on 12/28 however still requiring 4L via NC to keep sats >90%. Pt denies any symptomatic SOB and O2 need is driven by saturation. Walking O2 w/ RT to determine supplemental O2 need and likely d/c home on 12/28 w/ O2 Qualifiers: Qualified Codes: J96.01 - Acute respiratory failure with hypoxia (2) COPD with exacerbation Status: Acute Assessment & Plan: Suspect COPD exacerbation, but differential includes idiopathic pulmonary fibrosis with exacerbation given CT findings. Procal normal, afebrile, minimal leukocytosis, lower suspicion for bacterial infection. Duonebs. transition from solumedrol 60mg Q6H to prednisone taper (60mg qday x2 days, 50mg x 2 days, 40mg x 2 days). Mild leukocytosis development on 12/28 likely steroid induced. low concern for active infection at this time. (3) Diabetes mellitus, type 2 Status: Chronic Assessment & Plan: Diabetic diet, sliding scale insulin, determir 10u QHS Qualifiers: (4) Post-COVID syndrome Status: Acute Assessment & Plan: Dx with COVID early in Feb, suspect significant contribution to current respiratory failure, but CT also concerning for fibrosis and emphysema which were likely preexisting. Will need outpatient follow-up w/ pulmonary for continued workup. (5) Lung fibrosis Status: Acute Assessment & Plan: Will need further work-up after acute episode for possible idiopathic pulmonary fibrosis versus other cause. (6) Mediastinal lymphadenopathy Status: Acute Assessment & Plan: Possibly pathologic, will treat acute episode and likely set up for biopsy/follow up outpatient. (7) Hilar lymphadenopathy Status: Acute Assessment & Plan: Possibly pathologic, will treat acute episode and likely set up for biopsy/follow up outpatient. (8) DVT prophylaxis Status: Acute Assessment & Plan: Enoxaparin ANGELA AYERS MD 12/28/21 1441: Supervisory-Addendum Brief Verification & Attestation Participated in pt care: history, MDM, physical Personally performed: exam, history, MDM Care discussed with: Medical Student Procedures: n/a I saw and examined patient today, see discharge summary for my documentation. RUBINA HERNANDEZ III MED STUDENT Dec 28, 2021 11:49 ANGELA AYERS MD Dec 28, 2021 14:41
[2021-12-28] MEDS ORDERED: FLUT1AER IH (11:58)
[2021-12-28] MEDS ORDERED: RT-ALBUINH IH (11:58)
[2021-12-28] MEDS ORDERED: PRD10T PO (11:58)
[2021-12-28] MEDS ORDERED: UMEC62.5 IH (11:58)
--- NOTE | 2021-12-28 12:18 | Discharge Summary ---
Discharge Summary Hospital Course Problems/Diagnosis: (1) Acute respiratory failure Status: Resolved Resolution Date/Time: 12/28/21 @ 12:15 Assessment & Plan: Suspect secondary to COPD exacerbation, but possibly related to underlying fibrosis and recent COVID infection. CTA negative for PE. Respiratory status much improved on 12/28 however still requiring 4L via NC to keep sats >90%. Pt denies any symptomatic SOB and O2 need is driven by saturation. RT walked pt and he dropped only to 89%, did not qualify for home O2. Qualifiers: Qualified Codes: J96.01 - Acute respiratory failure with hypoxia (2) COPD with exacerbation Status: Acute Assessment & Plan: Suspect COPD exacerbation, but differential includes idiopathic pulmonary fibrosis with exacerbation given CT findings. Procal normal, afebrile, minimal leukocytosis, lower suspicion for bacterial infection. Duonebs. transition from solumedrol 60mg Q6H to prednisone taper (60mg qday x2 days, 50mg x 2 days, 40mg x 2 days). Mild leukocytosis development on 12/28 likely steroid induced. low concern for active infection at this time. -Started Breo, albuterol prn and umeclidinium on d/c. (3) Diabetes mellitus, type 2 Status: Chronic Assessment & Plan: Resumed home meds on d/c. Qualifiers: (4) Post-COVID syndrome Status: Acute Assessment & Plan: Dx with COVID early in Feb, suspect significant contribution to current respiratory failure, but CT also concerning for fibrosis and emphysema which were likely preexisting. Will need outpatient follow-up w/ pulmonary for continued workup. (5) Lung fibrosis Status: Acute Assessment & Plan: Will need further work-up after acute episode for possible idiopathic pulmonary fibrosis versus other cause. (6) Mediastinal lymphadenopathy Status: Acute Assessment & Plan: Possibly pathologic, will treat acute episode and set up for biopsy/follow up outpatient. (7) Hilar lymphadenopathy Status: Acute Assessment & Plan: Possibly pathologic, will treat acute episode and set up for biopsy/follow up outpatient. Hospital Course Date of Admission: Dec 26, 2021 at 12:53 Admission Diagnosis : Family Physician/Provider: [place] Date of Discharge: 12/28/21 Discharge Diagnosis: SEe problem list Hospital Course: See problem list Labs and Pending Lab Test: Laboratory Tests 12/27/21 15:33: Glucometer 404*H 3/2/22 20:46: Glucometer 358H 12/28/21 05:12: White Blood Count 14.9H, Red Blood Count 4.27L, Hemoglobin 12.5L, Hematocrit 37L , Mean Corpuscular Volume 86, Mean Corpuscular Hemoglobin 29, Mean Corpuscular Hemoglobin Concent 34, Red Cell Distribution Width 12.5, Platelet Count 222, Mean Platelet Volume 9.9, Sodium Level 138, Potassium Level 4.1, Chloride Level 106, Carbon Dioxide Level 19L, Anion Gap 13, Blood Urea Nitrogen 24H, Creatinine 0.81, Estimat Glomerular Filtration Rate 101, BUN/Creatinine Ratio 30, Glucose Level 236H, Calcium Level 9.8 12/28/21 10:20: Glucometer 140H Home Meds Active Proair Hfa (Albuterol Sulfate) 1 Puff Puff 2 Puff IH Q4H PRN 1 PUFF = 90 MCG Incruse Ellipta (Umeclidinium [place]) 62.5 Mcg Blst.w.dev 62.5 Mcg IH DAILY Prednisone 10 Mg Tab 0 PO UD Take 5 tabs(50mg)daily, decrease by 1 tab(10mg) every other day. Breo Ellipta 100-25 Mcg INH (Fluticasone/Vilanterol) 1 Each Blst.w.dev 1 Each IH DAILY Reported Vitamin D3 (Cholecalciferol (Vitamin D3)) 25 Mcg Tablet 25 Mcg PO DAILY Vitamin B-12 (Cyanocobalamin (Vitamin B-12)) 500 Mcg Tablet 500 Mcg PO DAILY Lisinopril 5 Mg Tablet 5 Mg PO DAILY LAST FILLED 06-24-2021 #90/90 DAY SUPPLY Simvastatin 20 Mg Tablet 20 Mg PO HS LAST FILLED 07-24-2021 #90/90 DAY SUPPLY Allopurinol 300 Mg Tablet 300 Mg PO DAILY LAST FILLED 07-24-2021 #90 DAY SUPPLY Aspirin EC (Aspirin) 81 Mg Tablet.dr 81 Mg PO DAILY Glipizide 5 Mg Tablet 5 Mg PO 1800 W/MEAL LAST FILLED 07-24-2021 #90/ DAY SUPPLY Metformin HCl 1,000 Mg Tablet 1,500 Mg PO 1800 AFTER MEAL Metformin HCl 1,000 Mg Tablet 1,000 Mg PO DAILY Assessment/Pt DC Instructions Follow up with primary doctor within a week of discharge, you will also need referred to Pulmonology for further evaluation of your lung disease and enlarged lymph nodes. Discharge Diet: ADA Diet Activity as Tolerated: Yes Discharge Physical Examination Allergies: Coded Allergies: NKANo Known Allergies (Verified Allergy, Unknown, 03/08/06) General Appearance: No Apparent Distress, WD/WN Respiratory: Lungs Clear, Normal Breath Sounds Cardiovascular: Regular Rate, Rhythm, No Edema, No Murmur Skin: Normal Color, Warm/Dry Neurologic/Psychiatric: Alert, Normal Mood/Affect ANGELA AYERS MD Dec 28, 2021 12:18
[2021-12-28 14:15] VITALS: BP 140/74
[2021-12-28] MEDS ORDERED: metFORMIN 500 MG (GLUCOPHAGE) TAB PO SCH (18:00)
[2021-12-28] MEDS ORDERED: SIMvastatin 20 MG (ZOCOR) TAB PO SCH (21:00)
[2021-12-29] MEDS ORDERED: CYANOCOBALAMIN 1,000 MCG (VITAMIN B-12) TABLET PO SCH (07:00)
== END 2021-12-28 14:15 | disposition home or self-care (01) | DRG 189 ==
LOC: EDUNIT# 10:45 → ER 10:48 → 4TH 12:53
PROVIDERS: ADMIT Family Medicine; ATTEND Family Medicine
DX: J96.01 Acute respiratory failure with hypoxia (principal); J44.1 Chronic obstructive pulmonary disease with (acute) exacerbation; U09.9 Post COVID-19 condition, unspecified; E11.9 Type 2 diabetes mellitus without complications; J84.10 Pulmonary fibrosis, unspecified; R59.1 Generalized enlarged lymph nodes; Z87.891 Personal history of nicotine dependence; R91.8 Other nonspecific abnormal finding of lung field
CPT/HCPCS: 36415; 71045; 71275; 80048; 80053; 82947; 84145; 85025; 85027; 86141; 94640; 94664; 94760; 94761

== ENCOUNTER → 2023-02-11 | Outpatient (CLI) | payer BC, OTHER ==
[~2023-02-11] MED LIST: ALBU8.5H6 IH; ALLO300T2 PO; ASPI-1238 PO; CHOL-34 PO; CYAN500T8 PO; FLUT1AER IH; GLIP5TAB13 PO; LISI5TAB20 PO; METF-399 PO; PRD10T PO; SIMV20TA26 PO; UMEC62.5 IH
== END ==
LOC: RT 09:15
PROVIDERS: ATTEND Family Medicine
DX: Z02.71 Encounter for disability determination (principal)
CPT/HCPCS: 94060; 94729